=== PATIENT | female | born 1945 | race Caucasian/White ===

== ENCOUNTER 2019-08-03 15:23 | Emergency (ER) | payer MEDICARE, OTHER, SELFPAY ==
[2019-08-03 15:35] VITALS: BP 174/65; PULSE 82; RESP 20; TEMP 37.4; O2SAT 97
--- NOTE | 2019-08-03 15:41 | ED.LOWEXIN ---
HPI - Extremity Injury (Lower) General Chief Complaint: Extremity Problem,Nontraumatic Stated Complaint: right knee pain Time Seen by Provider: 08/03/19 15:46 Source: patient and RN notes reviewed Mode of arrival: ambulatory Limitations: no limitations History of Present Illness HPI Narrative: 73 female presents with concern for low back pain that radiates down the left thigh to the anterior left thigh and occasionally to the left lower leg. Reports symptoms worsen with certain movements, has difficulty finding comfortable position at night. MD complaint: other (Knee pain) Related Data Home Medications Medication Instructions Recorded Confirmed alprazolam 1 mg PO DIRECTED 08/03/19 08/03/19 amlodipine 10 mg PO DAILY 08/03/19 08/03/19 citalopram 10 mg PO DAILY 08/03/19 08/03/19 ergocalciferol (vitamin D2) 1,250 mcg PO DAILY 08/03/19 08/03/19 linaclotide [Linzess] 290 mcg PO DAILY 08/03/19 08/03/19 pravastatin 40 mg PO DAILY 08/03/19 08/03/19 Allergies Allergy/AdvReac Type Severity Reaction Status Date / Time No Known Allergies Allergy Verified 08/03/19 15:46 Review of Systems Review of Systems: Narrative: CONSTITUTIONAL: Denies malaise, chills, sweats, or fever. CARDIOVASCULAR: Denies chest pain, palpitations, or edema. RESPIRATORY: Denies cough or dyspnea. GASTROINTESTINAL: Denies abdominal pain, nausea, vomiting, diarrhea GENITOURINARY: Denies dysuria or hematuria. SKIN: Denies bruising, redness MUSCULOSKELETAL: Reports right low back pain that radiates down the right anterior thigh NEUROLOGIC: Denies numbness, weakness All systems reviewed & are unremarkable except as noted in HPI and below PMFSH Comments At time of signature, agree with nursing past medical, surgical, social and family history. There is no relevant family history pertinent to the presenting complaint Exam Narrative: Exam Narrative: GENERAL: Well-appearing, well-nourished, and in no acute distress. HEAD: Normocephalic, atraumatic. EYES: PERRLA and EOMI. NECK: Supple. No lymphadenopathy. CHEST: Clear to auscultation. No respiratory distress. HEART: Regular rate and rhythm. Distal pulses palpable and equal, cap refill <3 seconds ABDOMEN: Soft, nontender, nondistended, normal active bowel sounds, no palpable or pulsatile masses. No CVA tenderness MUSCULOSKELETAL: Normal range of motion and strength in all extremities; 5/5 strength with hip flexion and extension, dorsiflexion and extension, knee flexion and extension, plantar flexion and extension. Normal sensation in dermatomal distributions with sensitivity to light touch and pain. No midline back tenderness to palpation. No paraspinal tenderness. Transfers from lying to sitting to standing. SKIN: Warm, dry, no rash. No ecchymosis, erythema, open wounds to back. NEURO: No focal deficits. Alert and oriented x3. Reflexes intact. Normal gait. PSYCH: Normal mood and affect Course Course Emergency Course: Patient is aware of diagnosis, understands and agrees to treatment plan. Anticipatory guidance given. Patient agrees to follow-up as directed and is aware of reasons to seek care at the emergency department. Portions of this record may have been created with voice recognition software Vital Signs Vital signs: Vital Signs Temperature 99.4 F 08/03/19 15:35 Pulse Rate 82 08/03/19 15:35 Respiratory Rate 20 08/03/19 15:35 Blood Pressure 174/65 H 08/03/19 15:35 Pulse Oximetry 97 08/03/19 15:35 Temperature 99.4 F 08/03/19 15:35 Pulse Rate 82 08/03/19 15:35 Respiratory Rate 20 08/03/19 15:35 Blood Pressure 174/65 H 08/03/19 15:35 Pulse Oximetry 97 08/03/19 15:35 Reviewed. Patient has history of hypertension MDM - Extremity Injury (Lower) MDM Narrative Medical decision making narrative: No risk factors or findings concerning for epidural abscess, diskitis, vertebral osteomyelitis, cord compression, cauda equina, vertebral fracture or bone malignancy, AAA, or pyelonep
== END 2019-08-03 16:00 | disposition home or self-care (01) ==
PROVIDERS: Emergency Provider Nurse Practitioner; PCP Internal Medicine
DX: M54.5 Low back pain (principal); Z86.73 Personal history of transient ischemic attack (TIA), and cerebral infarction without residual deficits; M19.90 Unspecified osteoarthritis, unspecified site
CPT/HCPCS: 99213; G0463